=== PATIENT | female | born 1930 | race Caucasian/White ===

== ENCOUNTER → 2018-05-11 | Outpatient (CLI) | payer MEDICARE ==
--- NOTE | 2018-05-11 14:41 | CARD ---
MR#: [id number] Date of Study: 05/11/2018 Ordering Physician: CARLTON LOPEZ, Referring Physician: CARLTON LOPEZ, Tech: Cheri Dasilva APPROVED REPORT EXAM: Two-dimensional and M-mode echocardiogram with Doppler and color Doppler. Other Information Quality : GoodHR: 93bpm INDICATION Atrial Fibrillation 2D DIMENSIONS RVDd3.3 (2.9-3.5cm)Left Atrium(2D)3.9 (1.6-4.0cm) IVSd0.9 (0.7-1.1cm)Aortic Root(2D)2.6 (2.0-3.7cm) LVDd5.1 (3.9-5.9cm)LVOT Diameter2.0 (1.8-2.4cm) PWd1.0 (0.7-1.1cm)LVDs3.4 (2.5-4.0cm) FS (%) 32.7 %SV74.0 ml LVEF(%)60.9 (>50%) Aortic Valve AoV Peak Joe.186.6cm/sAoV VTI38.8cm AO Peak GR.13.9mmHgLVOT Peak Joe.91.9cm/s LVOT VTI 18.68cmAO Mean GR.9mmHg KACIE (VMAX)1.48ur0ARI (VTI)1.58cm2 Mitral Valve MV E Hkefldsk19.7cm/sMV E Peak Gr.115mmHg MV DECEL [id number] A Czpluaxv58.6cm/s MV E Mean Gr.3mmHgMV XIW20gw E/A Ratio2.7MVA (PHT)3.83cm2 TDI E/Lateral E'11.7E/Medial E'18.8 Pulmonary Valve PV Peak Addwnfnp028.7cm/sPV Peak Grad.4mmHg Tricuspid Valve TR P. Tkicxvzt651ks/sRAP FTGSPUMO7utTk TR Peak Gr.98ltVpVMDD27gxGw Pulmonary Vein S1 Opgzccpi19.0cm/sD2 Sstwfhwr80.9cm/s PVa [id number] LEFT VENTRICLE The left ventricle is normal size. There is normal left ventricular wall thickness. The left ventricu lar systolic function is normal. The Ejection Fraction is 55-60%. There is normal LV segmental wall m otion. Diastology indeterminate due to atrial fibrillation. RIGHT VENTRICLE The right ventricle is normal size. There is normal right ventricular wall thickness. The right ventr icular systolic function is normal. ATRIA The left atrium is borderline dilated. The right atrium size is normal. The interatrial septum is int act with no evidence for an atrial septal defect or patent foramen ovale as noted on 2-D or Doppler i maging. AORTIC VALVE The aortic valve is calcified but opens well. Doppler and Color Flow revealed no significant aortic r egurgitation. There is no significant aortic valvular stenosis. MITRAL VALVE The mitral valve is thickened but opens well. There is no evidence of mitral valve prolapse. There is no mitral valve stenosis. Doppler and Color-flow revealed mild to moderate mitral regurgitation. TRICUSPID VALVE The tricuspid valve leaflets are thickened , but open well. Doppler and Color Flow revealed trace tri cuspid regurgitation. There is no tricuspid valve stenosis. PULMONIC VALVE The pulmonary valve is normal in structure and function. Doppler and Color Flow revealed no pulmonic valvular regurgitation. GREAT VESSELS The aortic root is normal in size. The IVC is normal in size and collapses >50% with inspiration. PERICARDIAL EFFUSION There is no evidence of significant pericardial effusion. Critical Notification Critical Value: No <Conclusion> The left ventricular systolic function is normal. The Ejection Fraction is 55-60%. There is normal LV segmental wall motion. Mild to moderate mitral regurgitation. Trace tricuspid regurgitation. There is no evidence of significant pericardial effusion. Signed by : Dagoberto Mayer, Electronically Approved : 05/11/2018 14:40:31
== END | disposition home or self-care (01) ==
LOC: ECHO 12:56
PROVIDERS: ATTEND Internal Medicine Cardiovascular Disease
DX: I34.0 Nonrheumatic mitral (valve) insufficiency (principal); I48.91 Unspecified atrial fibrillation
CPT/HCPCS: 93306

== ENCOUNTER → 2020-09-04 | Outpatient (CLI) | payer MEDICARE ==
--- NOTE | 2020-09-04 19:22 | CARD ---
MR#: [id number] Date of Study: 09/04/2020 Ordering Physician: CARLTON LOPEZ, Referring Physician: CARLTON LOPEZ, Tech: Jessica Whitney [facility] APPROVED REPORT EXAM: Two-dimensional and M-mode echocardiogram with Doppler and color Doppler. Other Information Quality : GoodHR: 100bpm Rhythm : Atrial Fibrillation INDICATION Aortic Valve Disease 2D DIMENSIONS RVDd3.3 (2.9-3.5cm)Left Atrium(2D)4.2 (1.6-4.0cm) IVSd1.1 (0.7-1.1cm)Aortic Root(2D)3.1 (2.0-3.7cm) LVDd4.7 (3.9-5.9cm)LVOT Diameter1.8 (1.8-2.4cm) PWd1.2 (0.7-1.1cm)LVDs3.4 (2.5-4.0cm) FS (%) 26.9 %SV54.0 ml LVEF(%)52.4 (>50%) Aortic Valve AoV Peak Joe.189.0cm/sAoV VTI42.8cm AO Peak GR.14.3mmHgLVOT Peak Joe.79.7cm/s AO Mean GR.8mmHgAVA (VMAX)1.08cm2 Tricuspid Valve TR P. Hplxfses604pi/sTR Peak Gr.14mmHg LEFT VENTRICLE The left ventricle is normal size. There is mild concentric left ventricular hypertrophy. There is mo derate LV systolic dysfunction. EF 35% There is moderate global hypokinesis. Tissue Doppler imaging r eveals moderate left ventricular diastolic dysfunction. No left ventricle thrombus noted on this stud y. RIGHT VENTRICLE The right ventricle is normal size. There is normal right ventricular wall thickness. The right ventr icular systolic function is normal. ATRIA The left atrium is mildly dilated. The right atrium is borderline dilated. The interatrial septum is intact with no evidence for an atrial septal defect or patent foramen ovale as noted on 2-D or Dopple r imaging. AORTIC VALVE The aortic valve is severely calcified with restricted leaflet motion. There is likely severe aortic stenosis with low flow low gradient phenomenon. (MG 10 mm Hg) Doppler and Color Flow revealed no sign ificant aortic regurgitation. MITRAL VALVE The mitral valve is thickened but opens well. There is no evidence of mitral valve prolapse. There is no mitral valve stenosis. Doppler and Color-flow revealed moderate mitral regurgitation. TRICUSPID VALVE The tricuspid valve is normal in structure and function. Doppler and Color Flow revealed mild tricusp id regurgitation. Estimated PAP 25 mmhg. There is no tricuspid valve stenosis. PULMONIC VALVE Doppler and Color Flow revealed trace pulmonic valvular regurgitation. There is no pulmonic valvular stenosis. GREAT VESSELS The aortic root is normal in size. The ascending aorta is normal in size. The IVC is normal in size a nd collapses >50% with inspiration. PERICARDIAL EFFUSION There is no evidence of significant pericardial effusion. Critical Notification Critical Value: No <Conclusion> There is moderate LV systolic dysfunction. EF 35% There is moderate global hypokinesis. The aortic valve is severely calcified with restricted leaflet motion. There is likely severe aortic stenosis with low flow low gradient phenomenon. Doppler and Color-flow revealed moderate mitral regurgitation. Signed by : David Naranjo, Electronically Approved : 09/04/2020 19:21:29
== END ==
LOC: ECHO 12:49
PROVIDERS: ATTEND Internal Medicine Cardiovascular Disease
DX: I08.3 Combined rheumatic disorders of mitral, aortic and tricuspid valves (principal); I48.91 Unspecified atrial fibrillation
CPT/HCPCS: 93306; C8929